=== PATIENT | female | born 1955 | race African-American/Black ===

== ENCOUNTER → 2019-01-12 | Outpatient (CLI) | payer MEDICARE, MEDICAID ==
[~2019-01-12] MED LIST: ACET-1194 PO; ALBU6.7H INH; CARV25TA47 PO; ESOM40CA PO; FERR-63 PO; FLUT1DIS5 INH; LEVVL SQ; LISI10TA5 PO; ONDA4TAB50 PO; REGADENOSON 0.4 MG/5 ML IV ONE; SITA1TAB8 PO
== END | disposition home or self-care (01) ==
LOC: NM 06:53
PROVIDERS: ATTEND Internal Medicine Cardiovascular Disease
DX: I10 Essential (primary) hypertension (principal); E11.9 Type 2 diabetes mellitus without complications; F17.200 Nicotine dependence, unspecified, uncomplicated
CPT/HCPCS: 78452; 93017; A9500; J2785